=== PATIENT | male | born 1940 | race African-American/Black ===

== ENCOUNTER 2019-03-12 13:57 | Inpatient (IN) | payer MEDICARE, MEDICAID ==
[~2019-03-12] VITALS: Ht 172.7 cm; Wt 97.1 kg
[~2019-03-12 13:57] MED LIST: ALBU90AE IH; AMIO200T PO; BICA50TA7 PO; CARV6.2548 PO; FURO40TA5 PO; GABA-290 PO; HYDR-4005 GT; LOSA25TA26 PO; PRAV40TA58 PO; SOLI5TAB PO; potassium
[2019-03-12] MEDS ORDERED: PIPERACILLIN/TAZ 3.375G PREMIX 50 ML IV ONE (14:45)
[2019-03-12] MEDS ORDERED: SODIUM CHLORIDE 0.9% 1000ML BAG (SEPSIS BOLUS) IV ONE (14:45)
[2019-03-12] MEDS ORDERED: HYDROCORTISONE SOD SUCCINATE 100 MG/2 ML VIAL IV ONE (14:45)
[2019-03-12] MEDS ORDERED: VANCOMYCIN 1 G PREMIX 200 ML IV ONE (14:45)
[2019-03-12 14:55] LABS: BG BASE EXCESS -5.6 mmol/L (-2.0-2.0); BG CARBOXYHEMOGLOBIN 0.6 % (0.5-1.5); BG FRACTION INSPIRED OXYGEN 21; BG HCO3 ACT 19.2 mmol/L (22.0-26.0); BG METHEMOGLOBIN 0.3 % (0.0-1.5); BG OXYGEN SATURATION 91.9 % (92.0-98.5); BG OXYHEMOGLOBIN 91.1 % (94.0-97.0); BG PCO2 35.2 mmHg (35.0-45.0); BG PH 7.354 (7.350-7.450); BG PO2 67.7 mmHg (75.0-100.0); BG SAMPLE SITE RIGHT RADIAL; BG TOTAL HEMOGLOBIN 12.7 g/dL (12.0-18.0); BG VENT MODE ROOM AIR
[2019-03-12] MEDS ORDERED: LIDOCAINE HCL 1% 20ML VIAL (Pyxis) INJ ONE (15:08)
[2019-03-12 15:18] LABS: BASOPHILS % 0.5 % (0.0-2.0); EOSINOPHILS % 2.1 % (0.0-5.0); HEMATOCRIT. 37.2 % (42.0-52.0); HEMOGLOBIN. 12.3 g/dL (14.0-18.0); MEAN CORPUSCULAR HEMOGLOBIN 32.1 pg (28.0-32.0); MEAN CORPUSCULAR VOLUME 96.8 fL (80.0-94.0); MEAN PLATELET VOLUME 8.5 fl (7.4-10.4); MONOCYTES % 8.5 % (2.0-8.0); NEUTROPHILS % 72.9 % (40.0-76.0); PLATELET 143 x1000/uL (130-400); RED BLOOD CELL COUNT 3.85 mill/uL (4.7-6.1); RED CELL DISTRIBUTION WIDTH 15.6 % (11.6-14.6)
[2019-03-12 15:25] LABS: CHLORIDE 108 mEq/L (98-107)
[2019-03-12 15:29] LABS: ETHANOL BLOOD < 10 mg/dL
[2019-03-12 15:35] LABS: INR 1.3; PROTHROMBIN TIME 12.9 sec (9.6-11.0)
[2019-03-12 18:33] LABS: CLARITY URINE CLEAR (CLEAR); COLOR URINE YELLOW (YELLOW); KETONES URINE NEGATIVE (NEGATIVE); LEUKOCYTE ESTERASE URINE NEGATIVE (NEGATIVE); NITRITE URINE NEGATIVE (NEGATIVE); OCCULT BLOOD URINE TRACE (NEGATIVE); PROTEIN URINE NEGATIVE (NEGATIVE); UROBILINOGEN URINE 0.2 E.U./dL (0.2-1.0)
[2019-03-12 18:45] LABS: *AMPHETAMINES SCREEN URINE NEGATIVE (NEGATIVE); *BARBITURATES SCREEN URINE NEGATIVE (NEGATIVE)
[2019-03-12 18:46] LABS: *BENZODIAZEPINES SCREEN URINE NEGATIVE (NEGATIVE); *COCAINE SCREEN URINE NEGATIVE (NEGATIVE); METHADONE URINE SCREEN NEGATIVE (NEGATIVE); OPIATES URINE SCREEN NEGATIVE (NEGATIVE); PHENCYCLIDINE URINE SCREEN NEGATIVE (NEGATIVE)
[2019-03-12 18:47] LABS: CANNABINOID URINE SCREEN NEGATIVE (NEGATIVE)
[2019-03-12] MEDS ORDERED: GUAIFENESIN 200MG/10ML SUGAR FREE UDC PO PRN (20:30)
[2019-03-12] MEDS ORDERED: ONDANSETRON HCL 4MG/2ML INJ IV PRN (20:30)
[2019-03-12] MEDS ORDERED: MAGNESIUM/ALUMINUM HYDROXIDE/SIMETHICONE 30ML UDC PO PRN (20:30)
[2019-03-12] MEDS ORDERED: DIPHENHYDRAMINE 50MG/ML VIAL IV PRN (20:30)
[2019-03-12] MEDS ORDERED: ACETAMINOPHEN 325MG TABLET PO PRN (20:30)
[2019-03-12] MEDS ORDERED: DEXTROSE 50% WATER 50ML SYRINGE IV PRN (20:30)
[2019-03-13] VITALS (8 sets, daily range): BP systolic 76–145; BP diastolic 31–73
[2019-03-13] MEDS ORDERED: ENOXAPARIN 40MG/0.4ML SYR SUBCUT SCH (01:30)
[2019-03-13] MEDS: SODIUM CHLORIDE 0.9% 1,000 ML IV SCH ×2 (03:20→19:21)
[2019-03-13 05:48] LABS: BASOPHILS % 0.2 % (0.0-2.0); EOSINOPHILS % 0.1 % (0.0-5.0); LYMPHOCYTES % 10.7 % (20.0-50.0); MEAN CORPUSCULAR HEMOGLOBIN 32.1 pg (28.0-32.0); MEAN CORPUSCULAR VOLUME 96.5 fL (80.0-94.0); MEAN PLATELET VOLUME 8.9 fl (7.4-10.4); MONOCYTES % 5.9 % (2.0-8.0); NEUTROPHILS % 83.1 % (40.0-76.0); PLATELET 111 x1000/uL (130-400); RED BLOOD CELL COUNT 3.73 mill/uL (4.7-6.1); RED CELL DISTRIBUTION WIDTH 15.1 % (11.6-14.6)
[2019-03-13 06:40] LABS: CHLORIDE 112 mEq/L (98-107)
[2019-03-13 06:51] LABS: PHOSPHORUS 3.4 mg/dL (2.5-4.9)
[2019-03-13] MEDS ORDERED: LEVOTHYROXINE SODIUM 100MCG TABLET PO SCH (07:40)
[2019-03-13] MEDS: BLOOD SUGAR DIAGNOSTIC STRIP TEST SCH ×4 (07:50→21:00)
[2019-03-13] MEDS: INSULIN LISPRO 100 UNITS/ML SUBCUT SCH ×4 (07:51→21:00)
[2019-03-13] MEDS: ASPIRIN 81MG EC TABLET PO SCH (10:18)
[2019-03-13] MEDS ORDERED: MAGNESIUM 4 G PREMIX 100 ML IV SCH (11:00)
[2019-03-13] MEDS ORDERED: PRAV40TA58 MT (11:22)
[2019-03-13] MEDS ORDERED: SODIUM CHLORIDE 0.9% 500 ML IV ONE (16:00)
[2019-03-13 17:01] LABS: T4 FREE 1.62 ng/dL (0.76-1.46)
[2019-03-13] MEDS ORDERED: ENOXAPARIN 100MG/ML SYR SUBCUT SCH (22:30)
[2019-03-13] MEDS: ENOXAPARIN 100MG/ML SYR SUBCUT SCH (23:00)
[2019-03-14] VITALS (7 sets, daily range): BP systolic 107–147; BP diastolic 34–65
[2019-03-14 00:39] LABS: CREATINE KINASE 98 IU/L (39-308)
[2019-03-14 00:40] LABS: CREATINE KINASE MB FRACTION < 1.0 ng/mL (0.5-3.6)
[2019-03-14] MEDS: BLOOD SUGAR DIAGNOSTIC STRIP TEST SCH ×4 (08:05→21:00)
[2019-03-14] MEDS: INSULIN LISPRO 100 UNITS/ML SUBCUT SCH ×4 (08:10→21:00)
[2019-03-14 09:32] LABS: BASOPHILS % 0.5 % (0.0-2.0); EOSINOPHILS % 1.8 % (0.0-5.0); HEMATOCRIT. 31.4 % (42.0-52.0); HEMOGLOBIN. 10.3 g/dL (14.0-18.0); MEAN CORPUSCULAR HEMOGLOBIN 31.5 pg (28.0-32.0); MEAN CORPUSCULAR VOLUME 96.1 fL (80.0-94.0); MEAN PLATELET VOLUME 8.7 fl (7.4-10.4); MONOCYTES % 6.2 % (2.0-8.0); NEUTROPHILS % 74.5 % (40.0-76.0); PLATELET 103 x1000/uL (130-400); RED BLOOD CELL COUNT 3.26 mill/uL (4.7-6.1); RED CELL DISTRIBUTION WIDTH 15.1 % (11.6-14.6)
[2019-03-14 09:49] LABS: CHLORIDE 117 mEq/L (98-107)
[2019-03-14 09:58] LABS: CREATINE KINASE 107 IU/L (39-308)
[2019-03-14 09:59] LABS: CREATINE KINASE MB FRACTION 1.9 ng/mL (0.5-3.6)
[2019-03-14] MEDS: SODIUM CHLORIDE 0.9% 1,000 ML IV SCH ×2 (10:34→12:19)
[2019-03-14] MEDS: ASPIRIN 81MG EC TABLET PO SCH (10:34)
[2019-03-14] MEDS: AMIODARONE HCL 200 MG TABLET PO SCH (10:34)
[2019-03-14] MEDS ORDERED: SODIUM CHLORIDE 0.9% 500 ML IV STA (15:45)
[2019-03-14] MEDS ORDERED: IOHEXOL-350 100 ML BOTTLE ONE (16:20)
[2019-03-14 18:20] LABS: CREATINE KINASE 132 IU/L (39-308)
[2019-03-14 18:21] LABS: CREATINE KINASE MB FRACTION 1.3 ng/mL (0.5-3.6)
[2019-03-14] MEDS ORDERED: POTASSIUM PHOS,M-BASIC-D-BASIC 20 MMOL in DEXT 5% WATER 243.3333 ML IV NR (20:30)
[2019-03-14] MEDS: ENOXAPARIN 100MG/ML SYR SUBCUT SCH (21:19)
[2019-03-15] VITALS (8 sets, daily range): BP systolic 113–153; BP diastolic 41–85
[2019-03-15] MEDS: SODIUM CHLORIDE 0.9% 1,000 ML IV SCH ×2 (02:46→14:32)
[2019-03-15] MEDS: BLOOD SUGAR DIAGNOSTIC STRIP TEST SCH ×4 (06:49→21:55)
[2019-03-15 07:03] LABS: BASOPHILS % 0.6 % (0.0-2.0); EOSINOPHILS % 3.7 % (0.0-5.0); HEMATOCRIT. 29.1 % (42.0-52.0); HEMOGLOBIN. 10.2 g/dL (14.0-18.0); LYMPHOCYTES % 17.6 % (20.0-50.0); MEAN CORPUSCULAR HEMOGLOBIN 33.4 pg (28.0-32.0); MEAN CORPUSCULAR VOLUME 95.4 fL (80.0-94.0); MEAN PLATELET VOLUME 9.1 fl (7.4-10.4); MONOCYTES % 8.6 % (2.0-8.0); NEUTROPHILS % 69.5 % (40.0-76.0); PLATELET 103 x1000/uL (130-400); RED BLOOD CELL COUNT 3.05 mill/uL (4.7-6.1); RED CELL DISTRIBUTION WIDTH 14.8 % (11.6-14.6)
[2019-03-15 07:23] LABS: CHLORIDE 114 mEq/L (98-107)
[2019-03-15 07:40] LABS: PHOSPHORUS 2.7 mg/dL (2.5-4.9)
[2019-03-15] MEDS: INSULIN LISPRO 100 UNITS/ML SUBCUT SCH ×4 (08:10→21:00)
[2019-03-15] MEDS: AMIODARONE HCL 200 MG TABLET PO SCH (08:52)
[2019-03-15] MEDS: LEVOTHYROXINE SODIUM 50MCG TABLET PO SCH (08:52)
[2019-03-15] MEDS: ASPIRIN 81MG EC TABLET PO SCH (08:52)
[2019-03-15] MEDS ORDERED: MAGNESIUM 2 G PREMIX 50 ML IV SCH (11:00)
[2019-03-15] MEDS ORDERED: MAGNESIUM 4 G PREMIX 100 ML IV SCH (12:00)
[2019-03-15] MEDS: ENOXAPARIN 100MG/ML SYR SUBCUT SCH (21:57)
[2019-03-16] VITALS: BP 136/55
[2019-03-16] MEDS: SODIUM CHLORIDE 0.9% 1,000 ML IV SCH (03:55)
[2019-03-16 04:00] VITALS: BP 142/58
[2019-03-16] MEDS: BLOOD SUGAR DIAGNOSTIC STRIP TEST SCH ×2 (06:51→12:28)
[2019-03-16] MEDS: LEVOTHYROXINE SODIUM 50MCG TABLET PO SCH (06:51)
[2019-03-16 08:00] VITALS: BP 109/52
[2019-03-16] MEDS: INSULIN LISPRO 100 UNITS/ML SUBCUT SCH ×2 (08:10→12:28)
[2019-03-16] MEDS ORDERED: PANTOT AC/MIN OIL/PET HY-PHL OINT (AQUAPHOR) TOP SCH (09:00)
[2019-03-16] MEDS: AMIODARONE HCL 200 MG TABLET PO SCH (09:16)
[2019-03-16] MEDS: ASPIRIN 81MG EC TABLET PO SCH (09:16)
[2019-03-16 10:30] LABS: BASOPHILS % 0.9 % (0.0-2.0); EOSINOPHILS % 6.3 % (0.0-5.0); HEMATOCRIT. 31.2 % (42.0-52.0); HEMOGLOBIN. 10.4 g/dL (14.0-18.0); LYMPHOCYTES % 19.5 % (20.0-50.0); MEAN CORPUSCULAR HEMOGLOBIN 32.1 pg (28.0-32.0); MEAN CORPUSCULAR VOLUME 95.9 fL (80.0-94.0); MEAN PLATELET VOLUME 8.7 fl (7.4-10.4); MONOCYTES % 9.2 % (2.0-8.0); NEUTROPHILS % 64.1 % (40.0-76.0); PLATELET 120 x1000/uL (130-400); RED BLOOD CELL COUNT 3.26 mill/uL (4.7-6.1); RED CELL DISTRIBUTION WIDTH 15.2 % (11.6-14.6)
[2019-03-16 10:35] LABS: CHLORIDE 114 mEq/L (98-107)
[2019-03-16 12:00] VITALS: BP 110/64
[2019-03-16] MEDS ORDERED: ENOXAPARIN 100MG/ML SYR SUBCUT SCH (13:00)
[2019-03-16] MEDS ORDERED: APIX5TAB MT ×2 (15:36→15:37)
[2019-03-16 15:39] VITALS: BP 110/64
== END 2019-03-16 16:30 | disposition home or self-care (01) | DRG 175 ==
LOC: ER 15:27 → 7WST 17:37 → EDBEDREQ 18:00 → ENRESERV 20:28 → CANRESERV 20:28 → EDBEDREQSVC 22:26 → ENRESERV 03-13 00:01
PROVIDERS: ADMIT Internal Medicine; ATTEND Internal Medicine
PROC: 02HV33Z Insertion of Infusion Device into Superior Vena Cava, Percutaneous Approach (ICD-10-PCS; principal; 2019-03-12)
PROC: B548ZZA Ultrasonography of Superior Vena Cava, Guidance (ICD-10-PCS; 2019-03-12)
DX: I26.99 Other pulmonary embolism without acute cor pulmonale (principal); J96.01 Acute respiratory failure with hypoxia; J18.9 Pneumonia, unspecified organism; I82.402 Acute embolism and thrombosis of unspecified deep veins of left lower extremity; I13.0 Hypertensive heart and chronic kidney disease with heart failure and stage 1 through stage 4 chronic kidney disease, or unspecified chronic kidney disease; I42.9 Cardiomyopathy, unspecified; I50.32 Chronic diastolic (congestive) heart failure; L12.0 Bullous pemphigoid; E46 Unspecified protein-calorie malnutrition; J44.0 Chronic obstructive pulmonary disease with (acute) lower respiratory infection; B02.39 Other herpes zoster eye disease; I95.1 Orthostatic hypotension; R00.1 Bradycardia, unspecified; E03.9 Hypothyroidism, unspecified; E11.22 Type 2 diabetes mellitus with diabetic chronic kidney disease; E83.39 Other disorders of phosphorus metabolism; K44.9 Diaphragmatic hernia without obstruction or gangrene; E83.42 Hypomagnesemia; K80.20 Calculus of gallbladder without cholecystitis without obstruction; E78.00 Pure hypercholesterolemia, unspecified; I48.0 Paroxysmal atrial fibrillation; K57.30 Diverticulosis of large intestine without perforation or abscess without bleeding; I95.9 Hypotension, unspecified; B02.9 Zoster without complications; G90.8 Other disorders of autonomic nervous system; N18.9 Chronic kidney disease, unspecified; Z74.01 Bed confinement status; Z79.899 Other long term (current) drug therapy; Z68.32 Body mass index [BMI] 32.0-32.9, adult
CPT/HCPCS: 36415; 36573; 36600; 71045; 71275; 74176; 76770; 78582; 80048; 80053; 80061; 80305; 80320; 81003; 82375; 82550; 82553; 82805; 82962; 83605; 83735; 83880; 84100; 84134; 84145; 84439; 84443; 84484; 85025; 85379; 87070; 87804; 93005; 93306; 93970; 99291; A9558; C1725; J1650; J1720; J2543; J3370; J3475; J3490; J7030; J7040; J7060; Q9967; G0480